=== PATIENT | female | born 2000 | race Caucasian/White ===

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

== ENCOUNTER 2020-03-30 16:18 | Emergency (ER) | payer MEDICAID ==
[~2020-03-30] VITALS: Ht 154.9 cm; Wt 87.7 kg
[2020-03-30 16:28] VITALS: Ht 154.9 cm; Wt 87.7 kg
[2020-03-30 17:25] LABS: BASOPHILS 0.1 % (0-2); EOSINOPHILS 0.5 % (0-7); HEMATOCRIT 38.4 % (36.0-48.0); HEMOGLOBIN 12.7 g/dL (12-16); IMMATURE GRANULOCYTES 0.8 % (0-5); LYMPHOCYTES 8.3 % (15-50); MCH 28.4 pg (26.0-34.0); MCHC 33.1 g/dL (31.0-37.0); MCV 85.9 fL (80.0-100.0); MEAN PLATELET VOLUME 10.8 fL (7.4-10.4); NEUTROPHILS 83.3 % (40-80); PLATELET COUNT 203 10x3/uL (130-400); RBC 4.47 10x6/uL (4.00-5.40); RDW 13.6 % (11.5-14.5); WBC 10.4 10x3/uL (4.8-10.8)
[2020-03-30 17:36] LABS: APTT 25.2 SECONDS (22.8-39.4); INR 0.95 (0.85-1.17); PROTIME 12.6 SECONDS (11.6-15.0)
[2020-03-30 17:37] LABS: CALC OSMOLALITY 260 mosm/kg (275-300); CARBON DIOXIDE 22.5 mmol/L (21.0-32.0); CHLORIDE - SERUM 98 mmol/L (98-107); CREATININE - SERUM 0.4 mg/dL (0.6-1.3); GLUCOSE 78 mg/dL (74-106); POTASSIUM - SERUM 3.5 mmol/L (3.5-5.1); SODIUM 132 mmol/L (136-145); UREA NITROGEN 4 mg/dL (7-18); eGFR NON AFRICAN AMERICAN > 90 mL/min (90-120)
[2020-03-30 17:53] LABS: ALBUMIN 3.4 g/dL (3.4-5.0); ALKALINE PHOSPHATASE 72 U/L (30-120); ALT (SGPT) 72 U/L (10-68); BILIRUBIN - TOTAL 0.49 mg/dL (0.2-1.3); CKMB 0.3 U/L (0.0-3.6); CREATINE KINASE 46 UL (21-215); PROTEIN - SERUM 7.7 g/dL (6.4-8.2); TROPONIN-I < 0.017 ng/mL (0.000-0.060)
[2020-03-30 18:40] LABS: BILIRUBIN NEGATIVE (NEGATIVE); GLUCOSE NEGATIVE (NEGATIVE); KETONE LARGE mg/dL (NEGATIVE); NITRITE NEGATIVE (NEGATIVE); UROBILINOGEN NORMAL (NORMAL)
[2020-03-30] MEDS ORDERED: ALBUTEROL SULF8.5 GM INH (19:09)
[2020-03-30 19:20] VITALS: BP 118/60
== END 2020-03-30 19:20 | disposition home or self-care (01) ==
LOC: D.ER 16:18
PROVIDERS: Family Medicine
DX: O26.892 Other specified pregnancy related conditions, second trimester (principal); Z3A.23 23 weeks gestation of pregnancy; R05 Cough; R50.9 Fever, unspecified; Z20.828 Contact with and (suspected) exposure to other viral communicable diseases

== ENCOUNTER 2020-05-26 13:27 | Outpatient (CLI) | payer MEDICAID ==
[2020-03-30 16:28] VITALS: BMI 36.5
[~2020-05-26 13:27] MED LIST: ALBUTEROL SULF8.5 GM INH
== END 2020-05-26 16:05 | disposition home or self-care (01) ==
LOC: D.LDO 13:27
PROVIDERS: ATTEND Obstetrics & Gynecology
DX: O36.5990 Maternal care for other known or suspected poor fetal growth, unspecified trimester, not applicable or unspecified (principal)

== ENCOUNTER 2020-05-29 17:29 | Outpatient (CLI) | payer MEDICAID ==
[2020-03-30 16:28] VITALS: BMI 36.5
== END 2020-05-29 18:14 | disposition home or self-care (01) ==
LOC: D.LDO 17:29
PROVIDERS: ATTEND Obstetrics & Gynecology
DX: O36.5990 Maternal care for other known or suspected poor fetal growth, unspecified trimester, not applicable or unspecified (principal)

== ENCOUNTER 2020-06-01 17:12 | Outpatient (CLI) | payer MEDICAID ==
[2020-03-30 16:28] VITALS: BMI 36.5
== END 2020-06-01 18:44 | disposition home or self-care (01) ==
LOC: D.LDO 17:12
PROVIDERS: ATTEND Obstetrics & Gynecology
DX: O36.5990 Maternal care for other known or suspected poor fetal growth, unspecified trimester, not applicable or unspecified (principal)

== ENCOUNTER → 2020-06-05 16:45 | Outpatient (CLI) | payer MEDICAID ==
[2020-03-30 16:28] VITALS: BMI 36.5
== END | disposition home or self-care (01) ==
LOC: D.LDO 16:45
PROVIDERS: ATTEND Obstetrics & Gynecology
DX: O36.5990 Maternal care for other known or suspected poor fetal growth, unspecified trimester, not applicable or unspecified (principal)

== ENCOUNTER 2020-06-08 18:29 | Outpatient (CLI) | payer MEDICAID ==
[2020-03-30 16:28] VITALS: BMI 36.5
== END 2020-06-08 18:51 | disposition home or self-care (01) ==
LOC: D.LDO 18:29
PROVIDERS: ATTEND Obstetrics & Gynecology
DX: O36.5930 Maternal care for other known or suspected poor fetal growth, third trimester, not applicable or unspecified (principal); Z3A.33 33 weeks gestation of pregnancy

== ENCOUNTER 2020-06-12 16:41 | Outpatient (CLI) | payer MEDICAID ==
[2020-03-30 16:28] VITALS: BMI 36.5
== END 2020-06-12 17:44 | disposition home or self-care (01) ==
LOC: D.LDO 16:41
PROVIDERS: ATTEND Obstetrics & Gynecology
DX: O36.5990 Maternal care for other known or suspected poor fetal growth, unspecified trimester, not applicable or unspecified (principal)

== ENCOUNTER 2020-06-15 19:35 | Outpatient (CLI) | payer MEDICAID ==
[2020-03-30 16:28] VITALS: BMI 36.5
== END 2020-06-15 20:50 ==
LOC: D.LDO 19:35
PROVIDERS: ATTEND Student in an Organized Health Care Education/Training Program
DX: O36.5990 Maternal care for other known or suspected poor fetal growth, unspecified trimester, not applicable or unspecified (principal)

== ENCOUNTER 2020-06-19 15:46 | Outpatient (CLI) | payer MEDICAID ==
[2020-03-30 16:28] VITALS: BMI 36.5
== END 2020-06-19 16:35 | disposition home or self-care (01) ==
LOC: D.LDO 15:46
PROVIDERS: ATTEND Obstetrics & Gynecology
DX: O36.5990 Maternal care for other known or suspected poor fetal growth, unspecified trimester, not applicable or unspecified (principal)

== ENCOUNTER → 2020-06-26 18:18 | Outpatient (CLI) | payer MEDICAID ==
[2020-03-30 16:28] VITALS: BMI 36.5
== END | disposition home or self-care (01) ==
LOC: D.LDO 18:18
PROVIDERS: ATTEND Obstetrics & Gynecology
DX: O36.5990 Maternal care for other known or suspected poor fetal growth, unspecified trimester, not applicable or unspecified (principal)